=== PATIENT | male | born 1950 | race Hispanic/Latino ===

== ENCOUNTER 2020-09-24 11:39 | Day surgery (SDC) | payer MEDICARE ==
[~2020-09-24] VITALS: Ht 172.7 cm; Wt 92.6 kg
[~2020-09-24 11:39] MED LIST: AMLO-258 PO; LISI1TAB29 PO; METF-444 PO; NAPR220C15 PO; ROSU20TA31 PO
[2020-09-24] MEDS ORDERED: DEXAMETHASONE SOD PHOSPHATE 4 MG/ML 1ML VIAL ONE (12:07)
[2020-09-24] MEDS ORDERED: LIDOCAINE HCL 1% 20 ML VIAL ONE (12:07)
[2020-09-24] MEDS ORDERED: ISOVUE-M 200 20 ML VIAL IT ONE (12:18)
[2020-09-24] MEDS ORDERED: IOPAMIDOL 10 ML VIAL ONE (12:22)
[2020-09-24 12:30] VITALS: BP 136/79
[2020-09-24] MEDS ORDERED: LIDOCAINE HCL MPF 1% 5ML VIAL ONE (13:02)
[2020-09-24] MEDS ORDERED: SODIUM CHLORIDE 0.9% 10 ML VIAL ONE ×2 (13:27)
[2020-09-24 13:40] VITALS: BP 123/77
[2020-09-24 13:55] VITALS: BP 109/72
[2020-09-24 14:10] VITALS: BP 112/69
== END 2020-09-24 14:15 | disposition home or self-care (01) ==
LOC: DAH 11:39
PROVIDERS: ATTEND Family Medicine Sports Medicine
DX: M50.30 Other cervical disc degeneration, unspecified cervical region (principal); Z20.822 Contact with and (suspected) exposure to COVID-19; M48.02 Spinal stenosis, cervical region; I10 Essential (primary) hypertension; E11.9 Type 2 diabetes mellitus without complications; E78.5 Hyperlipidemia, unspecified; M19.90 Unspecified osteoarthritis, unspecified site; Z79.84 Long term (current) use of oral hypoglycemic drugs; Z98.890 Other specified postprocedural states; Z79.899 Other long term (current) drug therapy
CPT/HCPCS: 62321; 82948; A4215 ×3; A4221; A4222; A4223; A4606; A4663; C9803; J1100; Q9966 ×2; U0003; 77003; J3490

== ENCOUNTER → 2020-10-16 | Outpatient (CLI) | payer MEDICARE | LOC: RAH 15:16 | PROVIDERS: ATTEND Physical Medicine & Rehabilitation | DX: M47.816 Spondylosis without myelopathy or radiculopathy, lumbar region (principal); M48.061 Spinal stenosis, lumbar region without neurogenic claudication; M25.511 Pain in right shoulder; M25.512 Pain in left shoulder | CPT/HCPCS: 72110; 73030 ==

== ENCOUNTER → 2020-11-01 | Outpatient (CLI) | payer MEDICARE | END | disposition home or self-care (01) | LOC: RAH 07:44 | PROVIDERS: ATTEND Neurological Surgery | DX: M47.22 Other spondylosis with radiculopathy, cervical region (principal); M50.321 Other cervical disc degeneration at C4-C5 level; M50.322 Other cervical disc degeneration at C5-C6 level; M48.02 Spinal stenosis, cervical region; M50.21 Other cervical disc displacement, high cervical region | CPT/HCPCS: 72141 ==

== ENCOUNTER → 2020-11-14 | Outpatient (CLI) | payer MEDICARE | END | disposition home or self-care (01) | LOC: RAH 12:35 | PROVIDERS: ATTEND Physical Medicine & Rehabilitation | DX: M75.121 Complete rotator cuff tear or rupture of right shoulder, not specified as traumatic (principal); M75.102 Unspecified rotator cuff tear or rupture of left shoulder, not specified as traumatic; M19.012 Primary osteoarthritis, left shoulder; M25.712 Osteophyte, left shoulder; M25.711 Osteophyte, right shoulder; M25.412 Effusion, left shoulder | CPT/HCPCS: 73221 ==

== ENCOUNTER 2022-12-07 20:58 | Emergency (ER) | payer MEDICARE ==
[~2022-12-07] VITALS: Ht 172.7 cm; Wt 92.5 kg
[~2022-12-07 20:58] MED LIST changes: -LISI1TAB29 PO; +LISI1TAB53 PO
[2022-12-07 21:29] VITALS: BP 174/92
[2022-12-07 23:28] LABS: BASOPHILS % (AUTO) 0.4 % (0.0-5.0); EOSINOPHILS % (AUTO) 1.6 % (0.0-8.0); HEMATOCRIT 47.1 % (42-54); LYMPHOCYTES % (AUTO) 26.7 % (21.0-51.0); MEAN CORPUSCULAR HEMOGLOBIN 30.5 pg (27.0-33.0); MEAN CORPUSCULAR HGB CONC 33.1 g/dL (32.0-36.0); MEAN CORPUSCULAR VOLUME 92.2 fL (79-99); MONOCYTES % (AUTO) 8.6 % (3.0-13.0); NEUTROPHILS % (AUTO) 62.3 % (40.0-77.0); PLATELET COUNT (AUTO) 156 K/uL (130-400); RED BLOOD CELL COUNT(AUTO) 5.11 MIL/uL (4.50-6.20); RED CELL DISTRIBUTION WIDTH 14.6 % (11.0-15.5); WHITE BLOOD COUNT (AUTO) 4.9 K/uL (4.8-10.8)
[2022-12-07 23:41] LABS: CREATININE 0.9 mg/dL (0.5-1.5)
[2022-12-07 23:58] LABS: B-TYPE NATRIURETIC PEPTIDE 9 pg/mL (0-100)
== END 2022-12-08 00:41 | disposition home or self-care (01) ==
LOC: EDH 20:58
DX: R42 Dizziness and giddiness (principal); I10 Essential (primary) hypertension; E78.00 Pure hypercholesterolemia, unspecified; E11.9 Type 2 diabetes mellitus without complications; Z79.899 Other long term (current) drug therapy
CPT/HCPCS: 36415; 70450; 71045; 80053; 83880; 84484; 85025; 93005